=== PATIENT | male | born 1990 | race Caucasian/White ===

== ENCOUNTER 2023-08-10 20:45 | Emergency (ER) | payer SELFPAY ==
[2023-08-10 20:49] VITALS: BP 155/96; PULSE 80; TEMP 36.6; O2SAT 99; BMI 25.1
--- NOTE | 2023-08-10 21:02 | PC.NURSE ---
Pt has raised red blotchy rash across all extremities, torso, and neck. Pt reports itching mainly on hands and feet. Denies any URI/flu like symptoms.
--- NOTE | 2023-08-10 21:04 | ED.SKABFB1 ---
HPI - Skin/Abscess/Foreign Bdy General Chief complaint: Skin/Abscess/Foreign Body Stated complaint: rash Time Seen by Provider: 08/10/23 20:48 Source: patient Mode of arrival: walk-in Limitations: no limitations History of Present Illness HPI narrative: This 33-year-old male with no significant medical history presents for evaluation of a diffuse nonpruritic rash. The patient states the rash started on his left knee approximately 10 days ago and has spread diffusely onto his arms, back, abdomen, legs hands and feet. He denies any prodromal symptoms. He has not had any fever or bodyaches. He states his symptoms started after he was playing disc golf and went into the [place] to get his disc. He does not have any sore throat, chest pain shortness of breath, dizziness or nausea. He was seen at urgent care over the weekend and was given a shot of something, he thinks it was a steroid and 3-day supply of something else that he thinks was a steroid but it has not responded. He states it does not itch or burn. He has no symptoms or swelling of his testicles or scrotum. He does not know if he was vaccinated in general as a child but I encouraged him to call his mother to inquire. He does remember having some shots as a child and went to public school indicating he likely had his childhood vaccinations. He was unable to get hold of his mother to confirm this. Related Data Home Medications ?Medication ?Instructions ?Recorded ?Confirmed No Known Home Medications 08/10/23 08/10/23 Allergies Allergy/AdvReac Type Severity Reaction Status Date / Time No Known Drug Allergies Allergy Verified 08/10/23 20:53 Review of Systems ROS Status of ROS 10 or more systems reviewed and unremarkable except as noted in history and below Exam Narrative Exam Narrative: Vital signs and Nursing Notes reviewed: He is afebrile with a normal pulse, blood pressure is elevated 155/96, he is not hypoxic with pulse ox of 99% on room air General: Awake, alert, oriented, no acute distress, lying comfortably on the stretcher HEENT: Normocephalic atraumatic, mucous membranes are moist and pink, eyes are clear, normal conjunctiva, vision is grossly intact, posterior pharynx is normal in appearance. No oral lesions or Koplik spots are appreciated. There is no posterior pharyngeal erythema or exudate. Neck: Supple, no meningeal signs, no anterior or posterior cervical lymphadenopathy Chest: Lungs are clear to auscultation with good air entry, there is no wheezing rhonchi or rales appreciated no accessory muscle use, patient is speaking in complete sentences-no chest wall tenderness to palpation CVS: Regular rate and rhythm S1-S2, no murmurs rubs or gallops, pulses are brisk and equal bilaterally Extremities: Moving all extremities, no lower extremity tenderness or swelling noted, negative Homans' sign, pulses are brisk and equal bilaterally Skin: There is a diffuse violaceous rash with multiple sizes of the rash, there is no petechia or purpura noted. The rash is noted on the patient's hands, feet, legs, abdomen and chest. It is less apparent on the lower back. I do not appreciate any on the face. These nima with palpation. No blistering or sign of cellulitis noted. Neuro: No focal deficits Constitutional Vital Signs, click to edit/add: Last Vital Signs Temp 98 F 08/10/23 20:49 Pulse 80 08/10/23 20:49 Resp 18 08/10/23 20:49 BP 155/96 H 08/10/23 20:49 Pulse Ox 99 08/10/23 20:49 O2 Del Method Room Air 08/10/23 20:49 Course Vital Signs Vital signs: Vital Signs Temperature 98 F 08/10/23 20:49 Pulse Rate 80 08/10/23 20:49 Respiratory Rate 18 08/10/23 20:49 Blood Pressure 155/96 H 08/10/23 20:49 Pulse Oximetry 99 08/10/23 20:49 Oxygen Delivery Method Room Air 08/10/23 20:49 Temperature 98 F 08/10/23 20:49 Pulse Rate 80 08/10/23 20:49 Respiratory Rate 18 08/10/23 20:49 Blood Pressure 155/96 H 08/10/23 20:49 Pulse Oximetry 99 08/10/23 20:49 Oxygen Delivery Method Room Air 08/10/23 20:49 MDM - Skin/Abscess/Foreign Bdy MDM Narrative Medical decision making narrative: This otherwise healthy 33-year-old male presents for evaluation of a rash that has been present for the past 10 days. He initially thought that he had poison rigo and was treated in urgent care with steroids without significant improvement. He denies any prodromal symptoms of fever, body aches, sore throat. He had put calamine on his hands because they were burning at 1 point. He states that sometimes his hands still feel tight like they are burning. His rash is present on his hands and feet and consistent with hand-foot and mouth disease. I do not appreciate any of the oral lesions he does not have any Koplik spots. He did attempt to contact his mother to confirm that he had childhood immunizations but was unable to reach her. He did go to public school in [place] and likely had his childhood immunizations. I do not think this is measles or chickenpox. Is consistent to me with ouob-wqsr-lii-mouth disease. It is not pruritic. He has not had a fever or any prodromal symptoms. I explained to him what I think this is and showed him a picture on [employer] that is similar. He agrees that it looks like this. The treatment was discussed with him and he verbalizes understanding. Will be given a note for work for the next several days as he does not feel comfortable working with the rash. Encouraged and return to emergency department with fever, headache, neck pain or stiffness, body aches or any concerns. Discharge Plan Discharge Stand Alone Forms: Portal Instructions Chief Complaint: Skin/Abscess/Foreign Body Clinical Impression: Viral exanthem, Hand, foot and mouth disease (HFMD) Patient Disposition: Home, Self-Care Time of Disposition Decision: 21:13 Condition: Good Prescriptions / Home Meds: No Action No Known Home Medications Print Language: Andorran Instructions: Hand, Foot, and Mouth Disease (ED), Viral Exanthem (ED) Referrals: Physician,Non-Staff, MD [Primary Care Provider] - 1 week
[2023-08-10 21:17] VITALS: PULSE 87; O2SAT 100
== END 2023-08-10 21:17 | disposition home or self-care (01) ==
PROVIDERS: Emergency Provider Emergency Medicine
DX: B08.4 Enteroviral vesicular stomatitis with exanthem (principal)
CPT/HCPCS: 99281